=== PATIENT | female | born 1935 | race Caucasian/White ===

== ENCOUNTER → 2016-08-23 | Outpatient (CLI) | payer MEDICARE | LOC: GMAJ 14:25 | PROVIDERS: ATTEND Family Medicine | DX: E03.8 Other specified hypothyroidism (principal); M10.9 Gout, unspecified ==

== ENCOUNTER → 2016-11-30 | Outpatient (CLI) | payer MEDICARE | END | disposition home or self-care (01) | LOC: GMAJ 12:02 | PROVIDERS: ATTEND Family Medicine | DX: E03.9 Hypothyroidism, unspecified (principal) ==

== ENCOUNTER → 2016-12-12 | Outpatient (CLI) | payer MEDICARE ==
--- NOTE | 2016-12-13 07:40 | MRI ---
EXAM DESCRIPTION: Lumbar Spine w/o Contrast CLINICAL HISTORY: 81 years,Female,LUMBAR DISC DISEASE COMPARISON: None TECHNIQUE: MRI before multiple sequences of the lumbar spine. FINDINGS: The vertebral bodies demonstrate normal signal and morphology. Spinal cord normal signal and morphology. Tip of the conus is at L1. Surrounding soft tissues demonstrate a simple cyst partially included exam in the right kidney measuring at least 4.3 cm. L5-S1: Disk height is mildly loss. There is mild to moderate annular disc bulge up to 4 mm in AP thickness. The facettes severe right moderate left hypertrophy with subchondral edema. There is no spinal canal stenosis. There is minimal right severe left neural foraminal stenosis. L4-5: Disk height is severely loss with Modic end plate changes. There is mild to moderate annular disc bulge of 2 mm AP distance. The facettes severe right moderate left facet hypertrophy. There is mild bilateral lateral recess stenosis due mostly to facet disease.. There is moderate right minimal left neural foraminal stenosis. L3-4: Disk height is minimal loss. There is mild posterior lateral disc bulges. The facettes mild to moderate hypertrophic. There is no spinal canal stenosis. There is minimal if any bilateral neural foraminal stenosis. L2-3: Disk height is unremarkable. There is minimal disc bulge. The facettes mild hypertrophy. There is no spinal canal stenosis. There is no neural foraminal stenosis. L1-2: Disk height is minimal loss. There is mild disc bulge posterior laterally. The facettes mild hypertrophic. There is no spinal canal stenosis. There is no neural foraminal stenosis. IMPRESSION: Mild bilateral lateral recess stenosis at L4-5 due to mostly to facet arthropathy. Impinging upon the transversing L5 nerve roots. Neural foraminal stenosis at the lower four lumbar levels as described above worse and moderate to severe at L4-5. Due mostly to mild to moderate disc bulges and facet arthropathy which is worse at the lowest level and severe Electronically signed by: Juaquin Gómez MD 12/13/2016 7:40 AM CDT
== END ==
LOC: MRI 08:03
PROVIDERS: ATTEND Family Medicine
DX: M51.27 Other intervertebral disc displacement, lumbosacral region (principal); M48.06 Spinal stenosis, lumbar region

== ENCOUNTER 2017-01-05 22:26 | Inpatient (IN) | payer MEDICARE ==
--- NOTE | 2017-01-05 23:34 | RAD ---
Procedure: XR CHEST 1 VIEW Exam Date: 01/05/2017 Ordering Provider: Tres Adhikari Clinical Indication: fever, AMS Comparison: 12/18/2014 Findings: Cardiac silhouette: Magnified by technique Pulmonary vasculature : Normal Mediastinal contour: Normal Aortic contour: Aortic calcification Focal lung consolidation: None Pleural effusion: No large pleural effusions. Pneumothorax: None Acute bony or soft tissue abnormality: None Impression: 1. No acute abnormalities in the chest. Electronically signed by: Max Yusuf MD 01/05/2017 11:33 PM CDT
[2017-01-05] MEDS ORDERED: SODIUM CHLORIDE 0.9% 1000ML 1,000 ML ONE (23:35)
[2017-01-05] MEDS ORDERED: cefTRIAXone SODIUM 1 GM in SODIUM CHL 0.9% 50ML MIN-BAG+ 50 ML IVPB ONE (23:46)
--- NOTE | 2017-01-06 | ED.PDOC ---
History of Present Illness - General Chief Complaint: Fever Stated Complaint: fever generalized weakness Time Seen by Provider: 01/05/17 22:27 Source: patient, family Exam Limitations: clinical condition - History of Present Illness Initial Comments: Patient presents after she felt weak and slumped to the floor. She and her caregiver say that she has been feeling weak for several days. They think she has had a fever but have not taken a measurement. She denies any other symptoms. She does not know the year but knows her name and location. She cannot remember going to the ground. No other history is possible to elicit. Timing/Duration: other - 2 days Severity: moderate Improving Factors: nothing Worsening Factors: nothing Associated Symptoms: fever/chills Allergies/Adverse Reactions: Allergies Sulfa Antibiotics Allergy (Severe, Verified 01/05/17 23:11) Other hematemesis Home Medications: Ambulatory Orders Esomeprazole Magnesium [Nexium] 40 mg PO DAILY 09/20/13 Calcium 600 mg PO HS 09/21/13 Cyanocobalamin [Vitamin B-12 Cr] 1 tablet PO AM 09/21/13 Levothyroxine Sodium 75 mcg PO AM 09/21/13 Lisinopril/Hctz 20-25 mg [Zestoretic 20-25 mg] 1 tablet PO AM 09/21/13 Multiple Vitamin [Multivitamins] 1 cap PO AM 09/21/13 Oxybutynin Chloride 10 mg PO BID 09/21/13 Aspirin 325 mg PO DAILY 12/18/14 Linaclotide [Linzess] 290 mcg PO DAILY 12/18/14 Mirtazapine 30 mg PO DAILY 12/18/14 Temazepam [Restoril] 15 mg PO BEDTIME 12/18/14 Atorvastatin Calcium [Lipitor] 80 mg PO BEDTIME 12/19/14 Isosorbide Mononitrate (Ismo) [Ismo] 20 mg PO 0900,1600 #60 tab 12/19/14 Meclizine HCl [Antivert] 25 mg PO Q8H PRN #30 tab 12/19/14 Review of Systems - Review of Systems Constitutional: States: see HPI EENTM: States: no symptoms reported Respiratory: States: no symptoms reported Cardiology: States: no symptoms reported Gastrointestinal/Abdominal: States: no symptoms reported Genitourinary: States: no symptoms reported Musculoskeletal: States: no symptoms reported Skin: States: no symptoms reported Neurological: States: see HPI Endocrine: States: no symptoms reported Hematologic/Lymphatic: States: no symptoms reported Past Medical History (General) - Patient Medical History Hx Seizures: Yes Hx Stroke: Yes Hx Asthma: No Hx of COPD: No Hx Cardiac Disorders: Yes - Bradycardia 40s in ER Hx Congestive Heart Failure: No Hx Pacemaker: No Hx Hypertension: Yes Hx Thyroid Disease: Yes Hx Diabetes: No Hx Gastroesophageal Reflux: Yes Hx MRSA: No - Vaccination History Hx Tetanus, Diphtheria Vaccination: No Hx Influenza Vaccination: Yes Hx Pneumococcal Vaccination: Yes - Social History Hx Tobacco Use: Yes - quit 1978 Hx Alcohol Use: Yes - years ago Hx Substance Use: No Hx Physical Abuse: No Hx Emotional Abuse: No - Female History Patient is a Female of Child Bearing Age (10 -59 yrs old): No Family Medical History - Family History Father Living Status: Age at (years of age): 54 Cause of : lung CA Hx Family Cancer: Yes - lung Physical Exam - Physical Exam Eye Exam: bilateral normal Ears, Nose, Throat: normal ENT inspection Neck: non-tender, full range of motion, supple Respiratory: lungs clear Cardiovascular/Chest: normal peripheral pulses, regular rate, rhythm Gastrointestinal/Abdominal: normal bowel sounds, non tender, soft Back Exam: normal inspection, no CVA tenderness Extremity: normal range of motion, non-tender, normal inspection 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 + leukocytosis. lactic acid 1.7 SBP went from 80s to 90s after fluid. Patient remained altered. Blood cultures and urine taken. Rocephin 1 gram IV x one started. Cardiac enzymes negative. Patient admitted. Laboratory Tests 01/05/17 01/05/17 01/05/17 22:20 22:20 22:40 WBC 13.9 H RBC 4.07 L Hgb 12.4 Hct 37.1 MCV 91.0 MCH 30.4 MCHC 33.4 RDW 14.7 H Plt Count 278 MPV 7.3 L Absolute Neuts (auto) 12.60 H Absolute Lymphs (auto) 0.60 L Absolute Monos (auto) 0.70 Absolute Eos (auto) 0.00 Absolute Basos (auto) 0.00 Neutrophils % 90.3 H Lymphocytes % 4.5 L Monocytes % 4.8 Eosinophils % 0.2 L Basophils % 0.2 Sodium 138 Potassium 3.8 Chloride 106 Carbon Dioxide 23 Anion Gap 12.8 BUN 37 H Creatinine 1.32 H BUN/Creatinine Ratio 28.0 H Random Glucose 158 H Serum Osmolality 287.7 Lactic Acid 1.7 Calcium 9.2 Total Bilirubin 0.3 AST 42 ALT 45 Alkaline Phosphatase 54 Serum Total Protein 7.1 Albumin 3.8 Globulin 3.3 Albumin/Globulin Ratio 1.2 Urine Color Urine Appearance Urine pH Ur Specific [place] Urine Protein Urine Glucose (UA) Urine Ketones Urine Blood Urine Nitrite Urine Bilirubin Urine Urobilinogen Ur Leukocyte Esterase Urine RBC Urine WBC Ur Epithelial Cells Urine Bacteria 01/05/17 23:47 WBC RBC Hgb Hct MCV MCH MCHC RDW Plt Count MPV Absolute Neuts (auto) Absolute Lymphs (auto) Absolute Monos (auto) Absolute Eos (auto) Absolute Basos (auto) Neutrophils % Lymphocytes % Monocytes % Eosinophils % Basophils % Sodium Potassium Chloride Carbon Dioxide Anion Gap BUN Creatinine BUN/Creatinine Ratio Random Glucose Serum Osmolality Lactic Acid Calcium Total Bilirubin AST ALT Alkaline Phosphatase Serum Total Protein Albumin Globulin Albumin/Globulin Ratio Urine Color Yellow Urine Appearance Sl cloudy Urine pH 6.0 Ur Specific [place] 1.015 Urine Protein Trace Urine Glucose (UA) Negative Urine Ketones Negative Urine Blood Trace-lysed H Urine Nitrite Negative Urine Bilirubin Negative Urine Urobilinogen 0.2 Ur Leukocyte Esterase Negative Urine RBC 1-3 Urine WBC 10-20 H Ur Epithelial Cells 1-3 Urine Bacteria 3+ H Departure - Departure Clinical Impression: Systemic infection Disposition: Admit Patient Condition: Fair Departure Forms: ED Discharge - Pt. Copy, Patient Portal Self Enrollment Diet: resume usual diet Activity: increase activity as tolerated Referrals: Lalo Zelaya MD [Primary Care Provider] - 1-2 Weeks Home Medications: Ambulatory Orders Esomeprazole Magnesium [Nexium] 40 mg PO DAILY 09/20/13 Calcium 600 mg PO HS 09/21/13 Cyanocobalamin [Vitamin B-12 Cr] 1 tablet PO AM 09/21/13 Levothyroxine Sodium 75 mcg PO AM 09/21/13 Lisinopril/Hctz 20-25 mg [Zestoretic 20-25 mg] 1 tablet PO AM 09/21/13 Multiple Vitamin [Multivitamins] 1 cap PO AM 09/21/13 Oxybutynin Chloride 10 mg PO BID 09/21/13 Aspirin 325 mg PO DAILY 12/18/14 Linaclotide [Linzess] 290 mcg PO DAILY 12/18/14 Mirtazapine 30 mg PO DAILY 12/18/14 Temazepam [Restoril] 15 mg PO BEDTIME 12/18/14 Atorvastatin Calcium [Lipitor] 80 mg PO BEDTIME 12/19/14 Isosorbide Mononitrate (Ismo) [Ismo] 20 mg PO 0900,1600 #60 tab 12/19/14 Meclizine HCl [Antivert] 25 mg PO Q8H PRN #30 tab 12/19/14
[2017-01-06] MEDS ORDERED: cefTRIAXone SODIUM 1 GM VIAL ONE ×3 (00:13→20:00)
[2017-01-06] MEDS ORDERED: SODIUM CHL 0.9% 50ML MIN-BAG+ 50 ML IVPB ONE ×3 (00:13→20:00)
[2017-01-06] MEDS ORDERED: SODIUM CHLORIDE 0.9% 1000ML 1,000 ML IVS ONE (00:24)
--- NOTE | 2017-01-06 01:12 | HP ---
SUPERVISING PHYSICIAN: Bandar Torres M.D. CHIEF COMPLAINT: Weakness and chills. HISTORY OF PRESENT ILLNESS: This is an 81 year-old female patient who was in her usual state of health up until about 3 days ago. She went to [place] with her and after she got home she started having what she described as right sided spasms as well as generalized weakness. She went to bed and during the night she woke up. She started having chills. She continued to have this right sided pain. She also had increase in urinary frequency. She does have a history of urge incontinence, but she said this was different than she has had in the past. She denied any dysuria or hematuria, but over the next day or so she progressively worsened to the point that she was staying in bed. Last night before she came to the Emergency Room, her assisted her to the bathroom and she was so weak that he could barely get her to the bathroom without maximum assistance. She was very lethargic and was having chills so badly that he brought her to the Emergency Room. In the Emergency Room, her WBCs were 13.9 with hemoglobin 12.4 and hematocrit 37.1. Neutrophils were 90.3. Sodium 138, potassium 3.8, chloride 106, carbon dioxide 23, BUN 37, creatinine 1.32. Blood glucose was 158. Urine had a trace of lysed blood with WBCs of 10 to 20, urine bacteria 3+. She was given fluids. Blood cultures and urine culture were done, and she was also given some Rocephin and fluids. Her temperature also had gotten up to 101.8 and I was called for admission. PAST MEDICAL HISTORY: 1. Hypothyroidism. 2. Gout. 3. Hypertension. 4. Frequent urination. 5. Gastroesophageal reflux disease. 6. Hyperlipidemia. 7. Lumbar disc disease. 8. Osteoarthritis. 9. Ulcerative colitis. 10. Cerebrovascular accident at age 65. 11. Diverticulitis. PAST SURGICAL HISTORY: 1. Appendectomy. 2. Cholecystectomy. 3. Hysterectomy. OUTPATIENT MEDICATIONS: Per the EMR and awaiting verification. ALLERGIES: ADHESIVES, IODINE, SULFA AND ZOCOR. SOCIAL HISTORY: She is . She presently does not smoke or drink alcohol , but she said she has a past history of smoking and drinking but quit over 40 years ago. REVIEW OF SYSTEMS: GENERAL: Positive for fatigue and fever. Negative for weight changes. HEENT: No ear pain, vision changes, sore throat or sinus symptoms. RESPIRATORY: No wheezing, coughing or shortness of breath. CARDIAC: No chest pain, palpitations or tachycardia. GASTROINTESTINAL: As per the history of present illness. GENITOURINARY: As per the history of present illness. NEUROLOGIC: Positive for weakness. Negative for dizziness or seizures. SKIN: Negative for lesions or rashes. PHYSICAL EXAMINATION: VITAL SIGNS: Temperature is recorded in the Emergency Room at 101.8, but after she came to the floor it was 100.5. Pulse rate was up to 106 but is now 89. Blood pressure was as low as 95/45 but is now 113/58. Respiratory rate max was 24 and is now 20. O2 sats were as low as 91 in the Emergency Room and are now 96 to 98% on room air. GENERAL: This is an 81 year-old obese female who is lying in her hospital bed. She is in no acute distress. HEENT: Normocephalic and atraumatic. Pupils are equal and reactive. Oropharynx is moist. NECK: Supple without mass. CHEST: Clear to auscultation bilaterally. CARDIOVASCULAR: Regular rate and rhythm. ABDOMEN: Soft, nondistended. Bowel sounds are positive. She does have some slight tenderness to the right upper quadrant and the pain extends to her right flank. There is no rebound tenderness. There is no guarding. EXTREMITIES: No cyanosis, clubbing or edema. NEUROLOGIC: She is awake, alert and oriented times three. LABORATORY: Lab from this morning shows her BUN and creatinine improved from 37 and 1.32 to 29 and 1.13. Glucose improved from 158 to 110. Her AST is slightly elevated this morning at 92. WBC are still elevated but have come down to 11.9. Hemoglobin is 11.3 and hematocrit is 33.8. Urine culture is pending. Preliminary blood cultures are negative. Chest x-ray in the Emergency Room shows no acute abnormalities in the chest. All other labs and films have been reviewed via the EMR. ASSESSMENT: 1. SIRS most likely related to the urinary tract infection but cannot rule out other sources. She has met the SIRS criteria with a temperature of 101.8. Heart rate was up to 106. WBCs were 13.9 and respiratory rate was 24 as well as glucose was 158. 2. Leukocytosis. 3. Urinary tract infection. Culture is pending. 4. Acute renal failure that is improving. 5. Right upper quadrant pain. 6. History of ulcerative colitis that is currently in remission. 7. Gastroesophageal reflux disease. 8. Hypertension. 9. Gout. 10. Hypothyroidism. PLAN: We will admit the patient to the hospital. We have given her fluids and she is feeling better. She received Rocephin in the Emergency Room and I have also continued that as well as added 1 dose of vancomycin. We will monitor her cultures as we may have to continue vancomycin tomorrow until it is clear where her source of infection is. I have given her Protonix for ulcer prophylaxis and Lovenox for DVT prophylaxis. I have ordered an abdominal x-ray and lab for in the morning. We will restart her home medications and monitor her closely. I have also encouraged good pulmonary hygiene. We will monitor the patient closely and followup as needed. Dr. Torres is the collaborating physician and available for consultation. #[id number] [facility]Jay
[2017-01-06] MEDS ORDERED: KCL 20MEQ/0.45% NS 1,000 ML IVS ONE (03:10)
[2017-01-06] MEDS ORDERED: ONDANSETRON INJ 4 MG/2 ML VIAL IV PRN (03:12)
[2017-01-06] MEDS ORDERED: IV SET AND CAP CHANGE INJ INJ SCH ×2 (09:00→09:30)
[2017-01-06] MEDS ORDERED: ACETAMINOPHEN 325 MG TAB PO PRN (09:15)
[2017-01-06] MEDS ORDERED: PANTOPRAZOLE SODIUM IV 40 MG VIAL ONE (09:31)
[2017-01-06] MEDS: ENOXAPARIN SODIUM 40 MG/0.4 ML SYG SUBCU SCH (09:36)
[2017-01-06] MEDS: SODIUM CHLORIDE 0.9% (FLUSH) 10 ML SYG IV SCH ×2 (09:37→21:35)
[2017-01-06] MEDS: PANTOPRAZOLE SODIUM IV 40 MG VIAL IV SCH (09:37)
[2017-01-06] MEDS ORDERED: SODIUM CHLORIDE 0.9% 250ML 250 ML ONE (09:44)
[2017-01-06] MEDS ORDERED: VANCOMYCIN HCL INJ 1,000 MG VIAL IVPB ONE (09:44)
[2017-01-06] MEDS ORDERED: VANCOMYCIN HCL INJ 1,000 MG in SODIUM CHLORIDE 0.9% 250ML 250 ML IVPB ONE (10:00)
[2017-01-06] MEDS: cefTRIAXone SODIUM 1 GM in SODIUM CHL 0.9% 50ML MIN-BAG+ 50 ML IVPB SCH ×2 (12:48→23:54)
--- NOTE | 2017-01-06 14:00 | RAD ---
{ABDOMINAL XRAY}01/06/2017 9:21 AM CDT INDICATION: MAIN COMPARISON: None. TECHNIQUE: Single view of the abdomen was performed. FINDINGS: No pneumoperitoneum. Significant stool is present throughout the colon and rectosigmoid. Gaseous distention of the hepatic flexure. Nonobstructive bowel gas pattern. Cholecystectomy clips. Visualized lung bases there is a myocardium IV. Otherwise, lung bases are clear.. There are no clinically significant osseous abnormalities noted. IMPRESSION: Significant colonic fecal load. Nonobstructive bowel gas pattern. No pneumoperitoneum. Electronically signed by: Cassie Bucio MD 01/06/2017 2:00 PM CDT
[2017-01-06] MEDS ORDERED: TEMAZEPAM 15 MG CAP PO PRN (20:24)
[2017-01-06] MEDS ORDERED: MIRTAZAPINE 45 MG PO SCH (21:00)
[2017-01-06] MEDS ORDERED: MIRTAZAPINE 15 MG TAB ONE (21:01)
[2017-01-06] MEDS: ISOSORBIDE MONONITRATE (ISMO) 20 MG TAB PO SCH (21:35)
[2017-01-06] MEDS: GABAPENTIN 300 MG CAP PO SCH (21:35)
[2017-01-07] MEDS: PANTOPRAZOLE SODIUM IV 40 MG VIAL IV SCH (06:25)
[2017-01-07] MEDS ORDERED: LISINOPRIL 10 MG TAB ONE (07:18)
[2017-01-07] MEDS ORDERED: hydroCHLOROthiazide 25 MG TAB ONE (07:19)
[2017-01-07] MEDS: LEVOTHYROXINE SODIUM 0.075 MG TAB PO SCH (08:12)
[2017-01-07] MEDS: LISINOPRIL 10 MG TAB PO SCH (08:17)
[2017-01-07] MEDS: hydroCHLOROthiazide 25 MG TAB PO SCH (08:20)
[2017-01-07] MEDS: ENOXAPARIN SODIUM 40 MG/0.4 ML SYG SUBCU SCH (08:20)
[2017-01-07] MEDS: SODIUM CHLORIDE 0.9% (FLUSH) 10 ML SYG IV SCH ×2 (08:21→20:37)
[2017-01-07] MEDS ORDERED: HCTZ PO SCH (09:00)
[2017-01-07] MEDS ORDERED: LISINOPRIL PO SCH (09:00)
[2017-01-07] MEDS ORDERED: [UNRECOGNIZED DRUG - OTHER] PO SCH (09:00)
[2017-01-07] MEDS ORDERED: SODIUM CHL 0.9% 50ML MIN-BAG+ 50 ML IVPB ONE ×2 (11:39→20:10)
[2017-01-07] MEDS ORDERED: cefTRIAXone SODIUM 1 GM VIAL ONE ×2 (11:40→20:10)
[2017-01-07] MEDS: cefTRIAXone SODIUM 1 GM in SODIUM CHL 0.9% 50ML MIN-BAG+ 50 ML IVPB SCH ×2 (12:29→23:30)
[2017-01-07] MEDS ORDERED: MAGNESIUM HYDROXIDE 30 ML UD PO ONE (20:03)
[2017-01-07] MEDS: GABAPENTIN 300 MG CAP PO SCH (20:34)
[2017-01-07] MEDS: ISOSORBIDE MONONITRATE (ISMO) 20 MG TAB PO SCH (20:34)
--- NOTE | 2017-01-07 20:54 | PN ---
DATE: 01/07/17 SUPERVISING PHYSICIAN: Bandar Torres M.D. SUBJECTIVE: The patient is sitting on the side of her bed talking with her family. She is feeling much better today. Her only complaint is that she has some back pain through her shoulder blades but believes it is from lying in bed so long and sitting in the Emergency Room for so long. Other than that, she has no complaints of shortness of breath, chest pain, nausea, vomiting, diarrhea or abdominal pain. OBJECTIVE: VITAL SIGNS: She is afebrile, heart rate 72, blood pressure 134/70, respiratory rate 18, O2 sat 95%. RESPIRATORY: Clear to auscultation bilaterally. CARDIAC: Regular rate and rhythm. ABDOMEN: Soft, nondistended, non-tender. Bowel sounds are positive. EXTREMITIES: No cyanosis, clubbing or edema. NEUROLOGIC: She is awake, alert and oriented times three. LABORATORY: White count is now normalized at 7.3, hemoglobin is 10.5 and 30.9 with platelets 189 and neutrophils now at 77.4. Chemistries are basically within normal limits with the exception of her BUN is 22 and creatinine is 0.91. Random glucose is 111. AST 86. CRP from yesterday is 19.1. Preliminary urine culture shows gram-negative rods. Preliminary blood cultures show no growth after 24 hours. Abdominal x-ray shows significant colonic fecal load with nonobstructive bowel gas pattern and no pneumoperitoneum. All of the other labs and films have been reviewed via the EMR. ASSESSMENT: 1. SIRS most likely related to the urinary tract infection but cannot rule out other sources. She has met the SIRS criteria with a temperature of 101.8. Heart rate was up to 106. WBCs were 13.9 and respiratory rate was 24 as well as glucose was 158. 2. Leukocytosis. 3. Urinary tract infection. Culture is pending. 4. Acute renal failure that is improving. 5. Right upper quadrant pain. 6. Constipation. 7. History of ulcerative colitis that is currently in remission. 8. Gastroesophageal reflux disease. 9. Hypertension. 10. Gout. 11. Hypothyroidism. PLAN: We will continue present supportive care, including her Rocephin. I will not restart or give her any more vancomycin because she is improving, and the most likely source of infection is urinary tract. We will continue to wait for her sensitivities from her cultures. I will give her a dose of Milk of Magnesia this evening. I have encouraged her to walk in the hallways as well as encouraged her to do good pulmonary hygiene. I have ordered routine labs for in the morning. Hopefully she can be discharged tomorrow or the next day. For now, we will monitor the patient closely and followup as needed. Dr. Torres is the collaborating physician available for consultation. [facility][id number] [facility]
[2017-01-07] MEDS ORDERED: ALPRAZolam 0.25 MG TAB PO SCH (21:00)
[2017-01-07] MEDS ORDERED: MIRTAZAPINE 15 MG TAB PO SCH (21:00)
[2017-01-07] MEDS: SODIUM CHLORIDE 0.9% (FLUSH) 10 ML SYG IV PRN (23:30)
[2017-01-08] MEDS: SODIUM CHLORIDE 0.9% (FLUSH) 10 ML SYG IV PRN (06:11)
[2017-01-08] MEDS: PANTOPRAZOLE SODIUM IV 40 MG VIAL IV SCH (06:12)
[2017-01-08] MEDS: LEVOTHYROXINE SODIUM 0.075 MG TAB PO SCH (06:13)
[2017-01-08] MEDS: hydroCHLOROthiazide 25 MG TAB PO SCH (08:35)
[2017-01-08] MEDS: SODIUM CHLORIDE 0.9% (FLUSH) 10 ML SYG IV SCH (08:35)
[2017-01-08] MEDS: LISINOPRIL 10 MG TAB PO SCH (08:35)
[2017-01-08] MEDS: ENOXAPARIN SODIUM 40 MG/0.4 ML SYG SUBCU SCH (08:35)
[2017-01-08 10:12] VITALS: BP 138/78; TEMP 98.5; O2SAT 95
[2017-01-08] MEDS ORDERED: cefTRIAXone SODIUM 1 GM VIAL ONE (11:11)
[2017-01-08] MEDS ORDERED: SODIUM CHL 0.9% 50ML MIN-BAG+ 50 ML IVPB ONE (11:11)
[2017-01-08] MEDS: cefTRIAXone SODIUM 1 GM in SODIUM CHL 0.9% 50ML MIN-BAG+ 50 ML IVPB SCH (11:20)
[2017-01-09] MEDS ORDERED: PANTOPRAZOLE SODIUM TAB 40 MG PO SCH (06:30)
--- NOTE | 2017-01-13 20:23 | DS ---
SUPERVISING PHYSICIAN: Lalo Zelaya M.D. DISCHARGE DIAGNOSIS: 1. SIRS felt to be related to underlying urinary tract infection as on admission she had a temperature of 101.8 with heart rate 106, white count was up to 13.9, respirations 24 with the patient showing good resolution and starting antibiotics and fluids. 2. Leukocytosis secondary to number 1 having normalized prior to discharge after antibiotic therapy 3. Urinary tract infection with final culture results showing Escherichia coli that was pansensitive with the patient responding well to antibiotic therapy having been on Rocephin. 4. Acute renal failure showing improvement after initiation of antibiotic therapy and IV fluids with normalization of creatinine prior to discharge. 5. Right upper quadrant pain likely secondary to constipation. 6. Constipation with good response to therapy with laxatives. 7. History of ulcerative colitis but in remission. 8. Gastroesophageal reflux disease. 9. Hypertension. 10. Gout. 11. Hypothyroidism. HISTORY OF PRESENT ILLNESS: Ms. Walsh is an 81 year-old female patient that was in her normal health up to 3 days prior to admission on 01/06 when she went to [facility] with her and after she got home she started having what she described as right sided spasms and generalized weakness. She went to bed that night, woke up and started having chills, continued with the right sided pain and increase in urinary frequency. She denied any dysuria or hematuria, but the next day or so prior to admission she progressively worsened to the point where she was staying in bed. The night prior to admission, she came to the Emergency Room. Her assisted her to the bathroom and she was so weak that she could barely get out of the bathroom without maximum assistance. She was very lethargic and was having chills so badly that he brought her to the Emergency Room at that point. In the Emergency Room, her white count was found to be 13.9 with hemoglobin 12.4, hematocrit 37.1 with a left shift. Urinalysis showed a trace of blood with WBCs being 10 to 20 and 3+ bacteria. In the Emergency Department she was given fluids. Blood cultures and urine cultures were completed and she was started on Rocephin. Her temperature on admission through the Emergency Department was initially 101.8 after which time she was admitted to the Medical/Surgical floor for further treatment and evaluation. LABORATORY: CBC on admission showed a leukocytosis of 13.9. After treatment with Rocephin and fluids prior to discharge it had normalized at 7.0. Hemoglobin and hematocrit stabilized at 11.0 and 32.3 by discharge. Platelet count was within normal limits at 229,000. Differential did show a left shift initially but after 2 days of treatment and with fluids and IV antibiotics had normalized prior to discharge. Chemistries on admission showed normal electrolytes but an elevated BUN of 37 as well as elevated creatinine at 1.32. Liver functions all showed to be within normal limits initially on admission. Electrolytes through admission stayed within normal limits. BUN had near normalized at 21 and creatinine normalized at 0.8 prior to discharge. She did show a little elevation in her AST level up to 92 but it started normalizing and was at 58 prior to discharge. She had a C reactive protein that was elevated at 19.1 and prior to discharge had near normalized at 7.9. Lactic acid on admission was 1.7. Urinalysis showed a tract amount of lysed blood on dipstick with microscopic revealing 1 to 3 RBCs and 10 to 20 WBCs, 1 to 3 epithelials and 3+ bacteria. MICROBIOLOGY: She had blood cultures times 2 that remained negative after 5 days. She had a urine culture that showed a final culture result of Escherichia coli that was pansensitive. She also had an Influenza by PCR for A and B that was both negative. RADIOLOGY: In the Emergency Department, she had a chest x-ray and per radiology interpretation prior to admission to the Medical/Surgical floor showed no acute abnormalities in the chest. She then had after admission an abdominal x-ray and per radiology interpretation showed significant colonic fecal load but no obstructive bowel gas pattern. No pneumoperitoneum. HOSPITAL COURSE: Ms. Walsh was admitted as noted in the History of Present Illness on 01/06 to the Medical/Surgical floor for possible sepsis related to underlying urinary tract infection. She was initiated with fluids in the Emergency Department as well as blood cultures were completed, and then at that point was started on antibiotics to include parenterally Rocephin. Clinically she did well. Her vital signs initially in the Emergency Department showed her to be febrile with a temperature of 101.8 and tachycardic at 104 with blood pressure of 95/45 with satting 91% on room air. After initiation of fluids and IV antibiotics treatment she remained afebrile. At discharge, temperature was 98.2, pulse 83, blood pressure 145/62, respiratory rate 16. She was satting 94 % on room air. It was felt that she was clinically improved well enough and had been on antibiotics with good coverage based off the underlying urinary culture and sensitivity, and was felt well enough to be discharged to continue with outpatient treatment. PLAN: Ms. Walsh was discharged on 01/08/17. She was instructed that she needed to have close clinical followup with Dr. Zelaya within 7 days of discharge. She was to resume her home medications as prior to admission and to start antibiotics to include Ciprofloxacin and take to completion after discharge. She was encouraged to take in adequate fluids to prevent dehydration. She was told to return to the hospital if her condition failed to improve or she had any other recurring symptoms. Her final appointment was made for Dr. Zelaya at 01/17/17 at 10:45. Discharge medications included Cipro 500 mg twice daily, #20. All other medications as prior to admission were resumed without any changes. Diet at discharge was as tolerated. Condition at discharge was stable, improved. #[id number] [facility]
== END 2017-01-08 12:15 | disposition home or self-care (01) | DRG 683 ==
LOC: ER 22:26 → MS 01-06 01:11
PROVIDERS: ADMIT Nurse Practitioner Acute Care; ATTEND Nurse Practitioner Family
DX: N17.9 Acute kidney failure, unspecified (principal); N39.0 Urinary tract infection, site not specified; K51.90 Ulcerative colitis, unspecified, without complications; K21.9 Gastro-esophageal reflux disease without esophagitis; I10 Essential (primary) hypertension; M10.9 Gout, unspecified; E03.9 Hypothyroidism, unspecified; E78.5 Hyperlipidemia, unspecified; M19.90 Unspecified osteoarthritis, unspecified site; K59.00 Constipation, unspecified; Z91.048 Other nonmedicinal substance allergy status; Z86.73 Personal history of transient ischemic attack (TIA), and cerebral infarction without residual deficits; Z88.2 Allergy status to sulfonamides; Z88.8 Allergy status to other drugs, medicaments and biological substances; Z87.891 Personal history of nicotine dependence; Z79.82 Long term (current) use of aspirin; Z79.899 Other long term (current) drug therapy; B96.20 Unspecified Escherichia coli [E. coli] as the cause of diseases classified elsewhere

== ENCOUNTER 2017-03-12 10:08 | Day surgery (SDC) | payer MEDICARE ==
[2017-03-12] MEDS ORDERED: LIDOCAINE 1% 10 ML VIAL INJ ONE (14:03)
[2017-03-12] MEDS ORDERED: methylPREDNISolone ACETATE 80 MG/ML VIAL IM ONE (14:03)
[2017-03-12] MEDS ORDERED: SODIUM CHLORIDE 0.9% 10 ML VIAL IV ONE (14:03)
[2017-03-12 14:40] VITALS: BP 176/82; TEMP 98.2; O2SAT 95
== END 2017-03-12 14:20 | disposition home or self-care (01) ==
LOC: AMB 10:08 → YCFC.O 10:08 → AMB 14:20 → EDSTATUS 16:29
PROVIDERS: ATTEND Anesthesiology Pain Medicine
DX: M47.817 Spondylosis without myelopathy or radiculopathy, lumbosacral region (principal); M51.37 Other intervertebral disc degeneration, lumbosacral region; D64.9 Anemia, unspecified; F41.8 Other specified anxiety disorders; K21.9 Gastro-esophageal reflux disease without esophagitis; E78.00 Pure hypercholesterolemia, unspecified; I10 Essential (primary) hypertension; M81.0 Age-related osteoporosis without current pathological fracture; G40.909 Epilepsy, unspecified, not intractable, without status epilepticus; Z88.2 Allergy status to sulfonamides; Z87.891 Personal history of nicotine dependence; Z86.73 Personal history of transient ischemic attack (TIA), and cerebral infarction without residual deficits; Z79.891 Long term (current) use of opiate analgesic; Z79.899 Other long term (current) drug therapy
CPT/HCPCS: 64493; 76000; 80307; 80354; 80358; 80365; J1030

== ENCOUNTER 2017-05-14 05:50 | Day surgery (SDC) | payer MEDICARE ==
[2017-05-14] MEDS ORDERED: SODIUM BICARBONATE VIAL 50 MEQ/50 ML VIAL ONE (09:24)
[2017-05-14] MEDS ORDERED: SODIUM CHLORIDE 0.9% 10 ML VIAL ONE (09:24)
[2017-05-14] MEDS ORDERED: LIDOCAINE 1% MPF 5 ML VIAL ONE (09:25)
[2017-05-14] MEDS ORDERED: methylPREDNISolone ACETATE 80 MG/ML VIAL ONE (09:25)
[2017-05-14 12:49] VITALS: O2SAT 94
[2017-05-14 14:47] VITALS: BP 157/79; TEMP 97.5
== END 2017-05-14 14:10 | disposition home or self-care (01) ==
LOC: AMB 05:50
PROVIDERS: ATTEND Anesthesiology Pain Medicine
DX: M47.817 Spondylosis without myelopathy or radiculopathy, lumbosacral region (principal)
CPT/HCPCS: 64635; 76000; J1030

== ENCOUNTER → 2017-05-21 | Outpatient (CLI) | payer MEDICARE | END | disposition home or self-care (01) | LOC: GMAJ 10:37 | PROVIDERS: ATTEND Family Medicine | DX: E03.9 Hypothyroidism, unspecified (principal) ==

== ENCOUNTER → 2017-07-18 | Outpatient (CLI) | payer MEDICARE ==
--- NOTE | 2017-07-20 09:19 | US ---
EXAM DESCRIPTION: Carotid Duplex CLINICAL HISTORY: STENOSIS COMPARISON: None Available TECHNIQUE: Color Doppler evaluation of the extracranial carotid FINDINGS: Right carotid: Moderate burden of calcified and noncalcified plaque is demonstrated within the common carotid artery at the bulb extending into the internal carotid artery. Peak systolic velocity common carotid artery = 62.2 cm/s Peak systolic velocity internal carotid artery = 85.6 cm/s Peak systolic velocity external carotid artery = 74.2 cm/s ICA CCA ratio 1.4 Left carotid: Mild to moderate amount of calcified and noncalcified plaque is demonstrated within the left carotid bulb. Peak systolic velocity common carotid artery = 72.5 cm/s Peak systolic velocity internal carotid artery = 78.3 cm/s Peak systolic velocity external carotid artery = 70.7 cm/s ICA CCA ratio 1.1 Vertebral arteries are not well seen. IMPRESSION: Moderate burden of calcified plaque demonstrated within the right carotid bulb extending into the internal carotid artery contributing to 40-50% narrowing by 2-D imaging. Mild burden of calcified plaque demonstrated within the left carotid bulb. No hemodynamically significant rate limiting stenosis is demonstrated bilaterally by NASCET criteria. Electronically signed by: Nathan Stone MD 07/20/2017 9:18 AM [facility]
== END ==
LOC: US 09:02
PROVIDERS: ATTEND Family Medicine
DX: I65.23 Occlusion and stenosis of bilateral carotid arteries (principal)

== ENCOUNTER 2017-08-12 16:15 | Emergency (ER) | payer MEDICARE ==
[2017-08-12] MEDS ORDERED: ACETAMINOPHEN 500 MG TAB PO ONE (17:10)
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
[2017-08-12 18:28] VITALS: BP 129/51; TEMP 100.5; O2SAT 94
== END 2017-08-12 18:30 | disposition home or self-care (01) ==
LOC: ER 16:15
DX: R50.9 Fever, unspecified (principal); E78.00 Pure hypercholesterolemia, unspecified; R56.9 Unspecified convulsions; I10 Essential (primary) hypertension; E07.9 Disorder of thyroid, unspecified; K21.9 Gastro-esophageal reflux disease without esophagitis; Z87.440 Personal history of urinary (tract) infections; Z87.891 Personal history of nicotine dependence; Z86.73 Personal history of transient ischemic attack (TIA), and cerebral infarction without residual deficits

== ENCOUNTER → 2017-11-26 | Outpatient (CLI) | payer MEDICARE | END | disposition home or self-care (01) | LOC: GMAJ 11:20 | PROVIDERS: ATTEND Family Medicine | DX: E03.9 Hypothyroidism, unspecified (principal) ==

== ENCOUNTER → 2017-12-11 | Outpatient (CLI) | payer MEDICARE ==
--- NOTE | 2017-12-07 09:19 | RAD ---
EXAM DESCRIPTION: Abdomen Series CLINICAL HISTORY: R194 abdominal pain generalized COMPARISON: January 06, 2017 FINDINGS: AP supine and upright views of the abdomen show a nonspecific, nonobstructive bowel gas pattern with no evidence for free intraperitoneal air. Surgical clips from cholecystectomy are seen. No air-filled dilated loops of small bowel are seen. No significant air-fluid levels are identified. Increased volume of formed fecal material throughout colon is again seen. No obvious organomegaly is seen. No abnormal calcifications are seen in the expected location of the renal collecting systems. Single view of the chest shows cardiac silhouette and pulmonary vasculature to be within normal limits. Lungs are normally aerated and clear. Calcifications of the thoracic aortic arch are seen. IMPRESSION: Nonspecific abdominal series Mild constipation or obstipation of the colon is seen. Electronically signed by: Ramana Wong MD 12/07/2017 9:17 AM CDT
== END ==
LOC: LAB.O 12-06 08:23
PROVIDERS: ATTEND Internal Medicine Gastroenterology
DX: K51.90 Ulcerative colitis, unspecified, without complications (principal); R19.4 Change in bowel habit

== ENCOUNTER → 2018-03-19 | Outpatient (CLI) | payer MEDICARE | LOC: RESP 10:51 | PROVIDERS: ATTEND Family Medicine | DX: R00.2 Palpitations (principal) ==

== ENCOUNTER → 2019-06-09 | Outpatient (CLI) | payer MEDICARE ==
--- NOTE | 2019-06-09 14:53 | RAD ---
EXAM DESCRIPTION: Knee,Right Complete CLINICAL HISTORY: 83 years Female, KNEE PAIN COMPARISON: None. Findings: Location: Right knee No acute fracture or dislocation. Asymmetric moderate narrowing of the lateral compartment. Tricompartmental osteophytes. No significant joint effusion. Osteopenia. IMPRESSION: Right knee osteoarthritis. No acute fracture. Electronically signed by: Kee Ramirez MD 06/09/2019 2:52 PM CDT
--- NOTE | 2019-06-09 15:01 | RAD ---
EXAM DESCRIPTION: Pelvis CLINICAL HISTORY: 83 years Female, HIP PAIN COMPARISON: June 19, 2016 FINDINGS: Single AP view the pelvis shows no acute fracture or malalignment. Moderate bilateral hip joint space narrowing, worse on the right side. Degenerative changes in the pubic symphysis. The sacroiliac joint spaces are fairly well-maintained. Moderate amount of colonic stool and gas. 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 Overall, findings do not appear significantly changed from June 19, 2016. Electronically signed by: Anthony Robin MD 06/09/2019 2:59 PM CDT
== END ==
LOC: RAD 10:00
PROVIDERS: ATTEND Orthopaedic Surgery
DX: M17.11 Unilateral primary osteoarthritis, right knee (principal); M16.0 Bilateral primary osteoarthritis of hip

== ENCOUNTER → 2019-09-12 | Outpatient (CLI) | payer MEDICARE | LOC: GMAJ 10:50 | PROVIDERS: ATTEND Family Medicine | DX: E03.9 Hypothyroidism, unspecified (principal); I10 Essential (primary) hypertension; E78.2 Mixed hyperlipidemia ==

== ENCOUNTER → 2019-10-02 | Outpatient (CLI) | payer MEDICARE ==
--- NOTE | 2019-10-03 08:37 | MAM ---
EXAM DESCRIPTION: Diagnostic Mammo,Bilateral (accession [id number]), Breast,Left (accession [id number]): Ultrasound CLINICAL HISTORY: 84 yearsFemaleINVERTED NIPPLE AND ITCHING . Onset one month ago. Palpable subareolar mass. No personal or family history of breast cancer. Menarche age 9. Childbirth age 18. Menopause age 40. No HRT. Lifetime risk of developing breast cancer (Tyrer-Cuzick model)(%): Not calculated due to age over 85. COMPARISON: No previous mammograms available. TECHNIQUE: Bilateral LM CC and MLO projection full-field images, digital tomosynthesis technique. Bilateral 2-D digital full-field images: LM, CC, and MLO projections. Spot magnification anterior left breast, LM and CC projections. CAD available for 2-D images.. Transcutaneous scanning of the retroareolar left breast utilizing ellis-scale and Doppler modes. Scanning performed by the hall supervisor and Dr. Mccoy. FINDINGS: The breast parenchymal density pattern is: Almost entirely fatty. No right breast skin thickening or nipple retraction spiculated retroareolar mass left breast with left nipple retraction and periareolar skin thickening. The central mass measures approximately 1.5 x 1.3 cm with heterogeneous pleomorphic microcalcifications. Approximately 3 mm posterior to the mass prior to ribs of heterogeneous and pleomorphic microcalcifications. One group is superior (8:30) to the other (7:30) and the superior group is associated with a small mass density. The inferior group is associated with fingerlike soft tissue densities. Bilateral vascular calcifications. Bilateral solitary microcalcifications. No focal, stellate mass or density, focal asymmetry , and no suspicious microcalcifications right breast. Ultrasound: Scanning of the retroareolar left breast and the anterior third lower inner quadrant. Mostly fatty replaced tissue with minimal fibroglandular tissues. Nipple retraction is present. Heterogeneously low-density mass wider than tall orientation but anterior and posterior extensions are noted with angulated and spiculated margins. Also a halo of echogenic material around the mass interfacing with the fatty breast tissues. Mostly posterior acoustic shadowing. Most likely a malignant tumor. Dimensions are 14.8 x 8.6 x 8.6 in the mass is vascular. No cystic tissue or large calcifications. In the 7:00 position 4 cm from the nipple is a hypoechoic tissue with lobulated margins and minimal posterior shadowing. This could represent a satellite/metastatic lesion in the similar location as was seen on the mammogram images. Approximate dimensions 6.7 x 5.7 X 4.9 mm. Vascularity is not known. No cystic tissue or large calcifications. A circumscribed slightly lobulated echogenic mass is more superficial and the breast measuring 5.6 x 2.7 mm and consistent with a lipoma. IMPRESSION: 1. BI-RADS CATEGORY: 5 HIGHLY SUSPICIOUS FINDINGS. HIGHLY SUGGESTIVE OF MALIGNANCY. 2. Recommendation: Surgical consultation and tissue diagnosis, if there are no other clinical concerns. The FINDINGS and the FOLLOW-UP plan were reviewed in person with the patient after the examination. Written communication explaining the IMPRESSION and FOLLOW-UP will be mailed to the patient and referring care provider. CRITICAL COMMUNICATION: The critical value was communicated directly by Dr. Mccoy via phone call, to Dr. Lalo Zelaya, at approximately 1155 hours, on 10/02/2019 Electronically signed by: Osei Mccoy MD 10/03/2019 8:35 AM [facility]
--- NOTE | 2019-10-03 09:52 | MRI ---
EXAM DESCRIPTION: Lumbar Spine w/o Contrast : Magnetic Resonance Imaging. CLINICAL HISTORY: SPINAL STENOSIS LUMBAR REGION WITH NEUROGENIC CLAUDICATION. Left breast mass. COMPARISON: MRI lumbar spine without contrast November 2016. Diagnostic bilateral digital breast tomosynthesis and left breast ultrasound on this visit. Pending MRI scan of the brain. TECHNIQUE: Multiplanar, multiple standard sequences, non contrast MRI, lumbar spine. FINDINGS: L5-S1: The disc is well visualized on axial T2 series 501, image 3. disc desiccation and disc space loss. Minimal edema in the anterior disc and in the soft tissues anterior to, and anterior left of disc. Posterior midline 5 mm disc protrusion with minimal superior extrusion in the midline. Degenerative hypertrophy of the facet joints and posterior flavum ligaments (posterior elements), with effusion in the right facet joint. AP canal diameter 10 mm. Left side advanced spondylosis with disc osteophyte encroachment on the foramina which is stenotic and compromise left L5 nerve. This has progressed since the prior study. Mild narrowing of the right foramen. L4-L5: Disc desiccation and advanced endplate changes to the right of midline and in the midline. 3.5 mm grade 1 anterolisthesis. Right side disc spur complex encroaching on the right foramen which is stenotic with compromise right L4 nerve. Degenerative hypertrophy of the posterior elements impressing on the lateral thecal sac. AP canal diameter 10 mm. Mild narrowing left foramen. Stable since the prior study. L3-L4: Normal signal in the disc with disc space minimally decreased. No bulging. Minimal degenerative hypertrophy of the posterior elements. Canal is patent. Minimal bilateral foraminal narrowing. Stable since the prior study. L2-L3: Normal signal in the disc with no bulging. Minimal degenerative hypertrophy of the posterior elements. Canal and foramina are patent. No change from the prior study. L1-L2: Anterior disc space loss with disc bulging and endplate ridging. Minimal disc desiccation. Degenerative hypertrophy of the posterior elements. Mild canal narrowing. Bilateral foramina are patent. Stable since the prior study. T12-L1: Normal signal in the disc with disc space preserved. Posterior elements unremarkable. Canal and foramina are patent. Conus terminates at this level. No significant scoliosis. Mild kyphosis upper lumbar spine. Paravertebral soft tissues small cyst in the left kidney and large cyst medial upper pole right kidney. Minimal paraspinal muscle atrophy.. Distal cord normal signal and caliber. Otherwise normal marrow signal in the remaining vertebral bodies and the posterior elements. Vertebral bodies are not compressed at any level. IMPRESSION: 1. Spondylosis and degenerative hypertrophy of the facet joints and posterior flavum ligaments at multiple levels. Also disc desiccation and bulging. 2. Stable small disc protrusion at L5-S1, but left side advanced spondylosis has progressed with left foraminal stenosis and impingement of the left L5 nerve. Borderline mild central canal stenosis. 3. Borderline mild central canal stenosis L4-L5 with grade 1 anterolisthesis and right foraminal stenosis, with right L4 nerve compromise. Stable since the prior study. 4. Spondylosis and disc space loss at L1-2 no change from the prior study. Electronically signed by: Osei Mccoy MD 10/03/2019 9:50 AM [facility]
== END ==
LOC: MRI 08:56
PROVIDERS: ATTEND Family Medicine
DX: N63.42 Unspecified lump in left breast, subareolar (principal); R92.8 Other abnormal and inconclusive findings on diagnostic imaging of breast; N64.53 Retraction of nipple; M47.896 Other spondylosis, lumbar region; M48.8X6 Other specified spondylopathies, lumbar region; M48.062 Spinal stenosis, lumbar region with neurogenic claudication; M51.87 Other intervertebral disc disorders, lumbosacral region; M43.16 Spondylolisthesis, lumbar region; M51.26 Other intervertebral disc displacement, lumbar region; M24.28 Disorder of ligament, vertebrae; M51.36 Other intervertebral disc degeneration, lumbar region

== ENCOUNTER → 2019-10-03 | Outpatient (CLI) | payer MEDICARE ==
--- NOTE | 2019-10-05 13:54 | MRI ---
EXAM DESCRIPTION: Brain w/o Contrast: MRI. CLINICAL HISTORY: dizziness and giddiness. Breast mass. COMPARISON: MRI lumbar spine. Diagnostic digital breast tomosynthesis. CT scan of the head 2014. TECHNIQUE: Multiplanar, high-field MRI unit, multiple diffusion sequences, multiple conventional sequences without contrast. FINDINGS: Hyperintense patchy regions of FLAIR and T2-weighted signal in the periventricular white matter of the right occipital lobe and the subcortical white matter and cortical ellis matter at the frontoparietal junction on the right above the ventricles.. No hemorrhage, no cerebral edema, no mass-effect. No diffusion restriction. Normal signal in the bilateral basal ganglia. Normal signal in the brainstem and cerebellar hemispheres. No hemorrhage, no parenchymal edema. Concordance of the diffusion and non-diffusion sequences with no diffusion restriction. Cortical sulci, ventricles, and other CSF spaces, and the subdural spaces are minimally prominent but age-appropriate. No effacement or displacement. No midline shift. No extra-axial hemorrhage. Normal flow signal void in the major vessels of the [place], and the venous sinuses. IACs are symmetric bilaterally. Normal signal in the bilateral mastoid air cells. No mass effect in the bilateral cerebellopontine angles. Pituitary gland occupies only the base of the sella. Base of the cerebellar tonsils is at the level of the foramen magnum. Minimal mucoperiosteal thickening in the paranasal sinuses without air-fluid levels.. The bony calvarium is intact. IMPRESSION: 1. Focal old ischemia most likely periventricular right occipital horn and subcortical white matter and cortical ellis matter lateral frontoparietal junction. Less likely to represent migraine headache, age-related changes, or demyelination. No hemorrhage, no mass effect, no diffusion restriction. 2. Age-related cortical and central atrophy with diffuse white matter changes or diffusion restriction. Minimal chronic paranasal sinusitis. Electronically signed by: Osei Mccoy MD 10/05/2019 1:52 PM [facility]
== END ==
LOC: MRI 12:40
PROVIDERS: ATTEND Family Medicine
DX: G93.9 Disorder of brain, unspecified (principal); G31.1 Senile degeneration of brain, not elsewhere classified; J32.9 Chronic sinusitis, unspecified

== ENCOUNTER 2019-11-14 06:27 | Day surgery (SDC) | payer MEDICARE ==
[2019-11-14] MEDS ORDERED: MAGNESIUM SULFATE INJ 1 GM/2 ML VIAL ONE (07:00)
[2019-11-14] MEDS ORDERED: DEXAMETHASONE INJ 10 MG/ML VIAL ONE (07:00)
[2019-11-14] MEDS ORDERED: raNITIdine HCL INJ 25 MG/ML VIAL ONE (07:00)
[2019-11-14] MEDS ORDERED: LIDOCAINE 1% 10 ML VIAL INJ ONE (07:00)
[2019-11-14] MEDS ORDERED: diphenhydrAMINE HCL 50 MG/ML VIAL ONE (07:00)
[2019-11-14] MEDS ORDERED: PROPOFOL 200 MG/20 ML VIAL IV ONE (07:00)
[2019-11-14] MEDS ORDERED: ceFAZolin SODIUM 1 GM VIAL ONE (07:00)
[2019-11-14] MEDS ORDERED: LACTATED RINGERS 1,000 ML ONE (07:04)
--- NOTE | 2019-11-14 08:44 | RAD ---
EXAM DESCRIPTION: Chest,2 Views CLINICAL HISTORY: 84 years Female, preop, low grade temperature COMPARISON: 01/05/2017 FINDINGS: 2 views/radiographs Heart size and pulmonary vessels are within normal limits. There is no pneumothorax or pleural effusion. The lungs are clear bilaterally. The soft tissues are unremarkable. No acute osseous findings. Atherosclerotic disease. IMPRESSION: No acute cardiopulmonary abnormality. Electronically signed by: Kee Ramirez MD 11/14/2019 8:43 AM CDT
[2019-11-14] MEDS ORDERED: fentaNYL CITRATE INJ 50 MCG/ML 2 ML AMP ONE (08:59)
[2019-11-14] MEDS ORDERED: KETAMINE HCL 100 MG/ML VIAL ONE (08:59)
[2019-11-14] MEDS ORDERED: BUPIVACAINE 0.5% W/EPI 30 ML VIAL INJ ONE ×2 (09:50→10:07)
[2019-11-14] MEDS: HYDROmorphone HCL INJ 2 MG/ML VIAL ONE ×2 (10:38→10:48)
--- NOTE | 2019-11-14 10:40 | OP ---
DATE OF PROCEDURE: 11/14/19 PROCEDURE: 1. Left mastectomy. 2. Excision, deep axillary lymph node times 2. SURGEON: Lalo Avery MD. ANESTHESIA: General and local. FINDINGS: The mass was central with slight nipple puckering. One palpable node approximately 1.5 cm and another smaller node. No other additional palpable bulky or fixed nodes were identified. COMPLICATIONS: None. ESTIMATED BLOOD LOSS: Minimal. DRAINS: 19 Nicholas drain was placed. PLAN: Discharge post recovery. INDICATION: This is an 84-year-old woman with diagnosed cancer of the left breast. Discussion was made regarding no surgical therapy versus lumpectomy with sentinel node or mastectomy. After consultation with her oncologist and all the recommendations, the decision was made for mastectomy. Ideally, sentinel node would be performed, but given the current circumstances, the deep test machine is difficult to get and we have a shortage of methylene blue. I do not think the lymph node status will change her therapy at all, so getting a true sentinel is not critical, however, I did sample a node after palpation of the axilla just for staging purposes. PROCEDURE: She was brought to the Operating Suite in supine position. General anesthesia was induced. She was prepped and draped in sterile fashion. Marcaine 0.5% with epinephrine was used at the incision site. I marked the incision based on the size of the breast and orientation of the closure. Superior flap was created after incision and following the natural plane, got to the subclavian area on the pectoralis muscle. We then performed the inferior flap in the same fashion down to the inframammary crease and then out laterally to the axillary fat. The breast was then removed with the anterior pectoral fascia and sent as specimen. Along the way, we ensured hemostasis with hemostats and cautery when needed. There was minimal oozing. She has been off her Plavix for a few days now. In the axilla, with gentle palpation and examination, one prominent node was identified. This was approximately 1.5 to 2 cm. There was another smaller node also and it was taken. Further examination of the area did not reveal any evidence of matted or suspicious lymphadenopathy. Once adequate hemostasis was confirmed, the area was irrigated. A 19 Nicholas drain was placed. The wound was then closed with multiple interrupted 3-0 Vicryl sutures and running 4-0 Monocryl. A pressure wrap was placed. She was awakened and taken to Recovery in stable condition. If she wakes up well, we will send her home with home health to avoid possible inpatient exposure given the current situation. #[id number] cc: MD Dr. Joe Jauregui
[2019-11-14] MEDS ORDERED: ONDANSETRON INJ 4 MG/2 ML VIAL ONE (10:53)
[2019-11-14 12:32] VITALS: BP 184/45; TEMP 99.7; O2SAT 95
== END 2019-11-14 12:25 | disposition home or self-care (01) ==
LOC: AMB 06:27
PROVIDERS: ATTEND Surgery
DX: C50.112 Malignant neoplasm of central portion of left female breast (principal); C77.3 Secondary and unspecified malignant neoplasm of axilla and upper limb lymph nodes; R56.9 Unspecified convulsions; E03.9 Hypothyroidism, unspecified; K21.9 Gastro-esophageal reflux disease without esophagitis; E78.00 Pure hypercholesterolemia, unspecified; Z86.73 Personal history of transient ischemic attack (TIA), and cerebral infarction without residual deficits; Z79.02 Long term (current) use of antithrombotics/antiplatelets; Z88.2 Allergy status to sulfonamides; Z88.6 Allergy status to analgesic agent; Z79.899 Other long term (current) drug therapy
CPT/HCPCS: 00400; 19303; 38525; 71046; 88305; 88309; 88342; J0690; J1100; J1170; J1200; J2405; J2780; J3010; J3475; J3490; J7120

== ENCOUNTER → 2019-12-20 | Outpatient (CLI) | payer MEDICARE | LOC: NC 10:16 | PROVIDERS: ATTEND Family Medicine | DX: R30.0 Dysuria (principal) ==

== ENCOUNTER → 2020-01-22 | Outpatient (CLI) | payer MEDICARE ==
--- NOTE | 2020-01-22 13:27 | CT ---
EXAM DESCRIPTION: Abdoment/Pelvis w/o Contrast CLINICAL HISTORY: DIARRHEA UNSPEC COMPARISON: None. TECHNIQUE: Noncontrast transaxial CT images of the abdomen and pelvis are obtained. This exam was performed according to our departmental dose-optimization program, which includes automated exposure control, adjustment of the mA and/or kV according to patient size and/or use of iterative reconstruction technique . FINDINGS: Visualized lung bases show mild chronic peripheral interstitial thickening. Heart is unremarkable. Given the limitations of a noncontrast exam the liver, spleen, pancreas, adrenal glands are unremarkable. Surgical clips from cholecystectomy are seen. No biliary tract obstruction. Severe arterial vascular calcifications are seen without aneurysmal dilatation of the aorta. Nonobstructing 4 mm calcification in the posterior mid pole calyx of the right kidney. Partly exophytic 5.2 cm fluid attenuation cyst of the upper pole right kidney. Small 3 mm calcification in the cortex of the lower pole right kidney. No left nephrolithiasis. No bilateral ureteral calcification or obstruction. Urinary bladder is poorly distended and unremarkable. Uterus is not identified and presumed surgically absent. The ovaries are not seen. The appendix is not definitely identified. No secondary signs of acute appendicitis. Stomach is poorly distended. No mass lesion or inflammatory changes. No small bowel obstruction or bowel wall thickening. Moderate to severe scattered diverticuli of the colon mainly in the descending to sigmoid region are seen without associated inflammatory changes or fluid collections. Fluid throughout the colon is seen without associated wall thickening. Osseous structures show no aggressive bony lesions. Osseous structures are diffusely osteopenic. Moderate to severe spondylitic changes of the spine are seen most significant at L4-5 and L5-S1. No pathologic lymphadenopathy. IMPRESSION: No acute findings on CT of the abdomen and pelvis. Nonobstructing right nephrolithiasis. Simple right renal cortical cysts are seen. Cholecystectomy and hysterectomy changes are identified. Moderate to severe colon diverticulosis without CT evidence of diverticulitis. Mostly fluid-filled colon could represent diarrhea state without wall thickening or inflammation. Electronically signed by: Ramana Wong MD 01/22/2020 1:25 PM CDT
== END ==
LOC: CT 10:57
PROVIDERS: ATTEND Family Medicine
DX: R19.7 Diarrhea, unspecified (principal); N20.0 Calculus of kidney; N28.1 Cyst of kidney, acquired; K57.30 Diverticulosis of large intestine without perforation or abscess without bleeding; Z90.49 Acquired absence of other specified parts of digestive tract; Z90.710 Acquired absence of both cervix and uterus

== ENCOUNTER → 2020-02-23 | Outpatient (CLI) | payer MEDICARE | LOC: LAB.O 10:30 | PROVIDERS: ATTEND Internal Medicine Hematology & Oncology | DX: C50.012 Malignant neoplasm of nipple and areola, left female breast (principal) ==

== ENCOUNTER → 2020-03-05 | Outpatient (CLI) | payer MEDICARE | LOC: NC 10:46 | PROVIDERS: ATTEND Family Medicine | DX: I10 Essential (primary) hypertension (principal); I25.10 Atherosclerotic heart disease of native coronary artery without angina pectoris; I73.9 Peripheral vascular disease, unspecified; C50.112 Malignant neoplasm of central portion of left female breast; E78.2 Mixed hyperlipidemia; E03.9 Hypothyroidism, unspecified ==

== ENCOUNTER → 2020-06-17 | Outpatient (CLI) | payer MEDICARE | LOC: NC 11:03 | PROVIDERS: ATTEND Family Medicine | DX: C50.112 Malignant neoplasm of central portion of left female breast (principal) ==

== ENCOUNTER → 2020-07-01 | Outpatient (CLI) | payer MEDICARE | LOC: NC 09:19 | PROVIDERS: ATTEND Family Medicine | DX: I10 Essential (primary) hypertension (principal); I25.10 Atherosclerotic heart disease of native coronary artery without angina pectoris; C50.112 Malignant neoplasm of central portion of left female breast; M10.10 Lead-induced gout, unspecified site; M19.071 Primary osteoarthritis, right ankle and foot ==

== ENCOUNTER → 2020-07-08 | Outpatient (CLI) | payer MEDICARE ==
--- NOTE | 2020-07-09 14:48 | MAM ---
EXAM DESCRIPTION: 3D Diagnostic, Right: Digital Mammography CLINICAL HISTORY: 85 yearsFemaleHISTORY OF BREAST CANCER personal history of breast cancer 2019 left breast. No complaints. No family history of breast cancer. Menarche age 9. Childbirth age 19. Postmenopausal.. Lifetime risk of developing breast cancer (Tyrer-Cuzick model) percentage is not calculated due to personal history of breast cancer. COMPARISON: Bilateral diagnostic breast tomosynthesis and targeted left breast ultrasound September 2019.. TECHNIQUE: Left breast LM, CC, and MLO projection full-field images, digital mammographic tomosynthesis technique. Bilateral 2-D digital full-field MLO images. LM, CC, and MLO projections. CAD available for 2-D images. FINDINGS: Right breast parenchymal density pattern is: Scattered areas of fibroglandular density. No skin thickening or nipple retraction vascular calcifications. Solitary microcalcifications. Fewer skin calcifications on the current study. No new focal, stellate mass or density, focal asymmetry , and no suspicious microcalcifications right breast Stable mammograms compared to prior study, taking into account differences in mammographic technique IMPRESSION: Benign exam. BIRAD CATEGORY: 2 BENIGN FINDINGS. RECOMMENDATIONS: FOLLOW UP: Routine digital bilateral mammographic screening, one year interval from June 2020. Written communication explaining the IMPRESSION and follow-up, will be mailed to the patient and referring health care provider. According to the [employer], yearly mammograms are recommended starting at age 40 and continuing as long as a woman is in good health. Any breast change noted on a breast self-exam should be reported promptly to the patient's healthcare provider. Breast MRI is recommended for women with an approximately 20-25% or greater lifetime risk of breast cancer, including women with a strong family history of breast or ovarian cancer and women who have been treated for Hodgkin's disease. A negative mammographic report should not delay tissue diagnosis in patients with significant clinical history or physical findings. Extremely dense breast tissue limits the sensitivity of digital mammography. Electronically signed by: Osei Mccoy MD 07/09/2020 2:47 PM [facility]
== END ==
LOC: MAMMO 09:00 → US 07-12 09:00
PROVIDERS: ATTEND Internal Medicine Hematology & Oncology
DX: C50.111 Malignant neoplasm of central portion of right female breast (principal)
CPT/HCPCS: 77065; G0279